=== PATIENT | female | born 1940 | race Caucasian/White ===

== ENCOUNTER 2018-07-20 16:01 | Emergency (ER) | payer MEDICARE | END 2018-07-20 16:40 | disposition home or self-care (01) | LOC: MADERS 16:01 | DX: S61.412A Laceration without foreign body of left hand, initial encounter (principal); Z86.73 Personal history of transient ischemic attack (TIA), and cerebral infarction without residual deficits; Z79.899 Other long term (current) drug therapy; W22.8XXA Striking against or struck by other objects, initial encounter; Y92.007 Garden or yard of unspecified non-institutional (private) residence as the place of occurrence of the external cause | CPT/HCPCS: 99283 ==